=== PATIENT | male | born 1960 | race Caucasian/White ===

== ENCOUNTER 2018-03-29 08:07 | Day surgery (SDC) | payer SELFPAY ==
[2018-03-29] MEDS: NS 1,000 ML IV (08:45)
[2018-03-29] MEDS ORDERED: LIDOCAINE 2% INJ 100 MG/5 ML SDV (FOR ANES.) As Ordered ×2 (09:56)
[2018-03-29] MEDS ORDERED: PROPOFOL 200 MG/20 ML VIAL As Ordered (09:56)
== END 2018-03-29 10:31 | disposition home or self-care (01) ==
LOC: M OPP 08:07
DX: Z12.11 Encounter for screening for malignant neoplasm of colon (principal); D12.5 Benign neoplasm of sigmoid colon; K64.8 Other hemorrhoids; Z80.0 Family history of malignant neoplasm of digestive organs
CPT/HCPCS: 45385